=== PATIENT | female | born 1970 ===

== ENCOUNTER 2018-04-09 09:22 | Outpatient (CLI) | payer OTHER ==
[~2018-04-09 09:22] MED LIST: CALCIUM1 TAB PO; DURICEF 500 MG CAPSULE PO; OSTERA TABLET1 EACH PO; OXYC1TAB9 PO; PREMARIN1.25 MG PO
== END 2018-04-09 16:00 | disposition home or self-care (01) ==
LOC: TOM 09:22
DX: K56.690 Other partial intestinal obstruction (principal)